=== PATIENT | male | born 1990 | race Caucasian/White ===

== ENCOUNTER 2021-03-02 10:48 | Emergency (ER) | payer OTHER, SELFPAY ==
[2021-03-02 10:56] VITALS: BP 110/77; PULSE 82; RESP 15; TEMP 36.4; O2SAT 99; BMI 25.0
--- NOTE | 2021-03-02 10:59 | PC.NURSE ---
Patient reports that he was moving things in his garage and dropped a scissor annie on his left foot around 0630 this morning. Reports pain as throbbing and reports pain as a 7 on the numeric pain scale.
--- NOTE | 2021-03-02 11:05 | XR_ITS ---
WS: [id number] Left foot, 3 views, 03/02/2021 Clinical Data: trauma Comparison: None. Findings: No fractures or dislocations are seen. No bone destruction or erosion is noted. The joint spaces and soft tissues are normal. XR/XR foot LT min 3V* [id number] Impression: Negative left foot.
[2021-03-02 11:09] VITALS: BP 110/77; PULSE 75; RESP 16; O2SAT 100
[2021-03-02] MEDS: acetaminophen 325 mg Tablet 650 MG PO (11:15)
--- NOTE | 2021-03-02 11:33 | ED_ITS ---
HPI - Extremity Problem General: Chief complaint: Extremity Injury, Lower Stated complaint: Foot Pain Time Seen by Provider: 03/02/21 10:55 Source: patient Mode of arrival: ambulatory Limitations: no limitations History of Present Illness: HPI Narrative: 30 yo male patient presents to ER with left foot pain. Pt states he dropped a annie on it and now it is painful. Pt denies any numbness or tingling. Pt denies any other trauma or injury. MD Complaint: extremity pain Pain Consistency: constant Location: left and lower extremity Associated symptoms: Deny chest pain or fever(s) Review of Systems General: Reports: 10 or more systems reviewed and unremarkable except in HPI and below Const: Denies: fever(s) or chills Card: Denies: chest pain Resp: Denies: dyspnea GI: Denies: abdominal pain Musc: Reports: extremity pain Physical Exam Const: COMMON NORMALS: no acute distress, average body habitus, patient oriented x3, no limitations, healthy appearing, alert and well nourished Extremity: LEFT LOWER EXTREMITY: Yes foot & digits (minimal edema) Left foot and digits: Yes inspection, Yes palpation (tedner to distal dorsal area) and Yes neurovascular exam (NVi distally) Neuro: COMMON NORMALS: patient oriented x3 SENSORIUM/ORIENTATION: Yes alert Course Vital Signs: Vital signs: Vital Signs Temperature 97.5 F L 03/02/21 10:56 Pulse Rate 75 03/02/21 11:09 Respiratory Rate 16 03/02/21 11:09 Blood Pressure 110/77 03/02/21 11:09 Pulse Oximetry 100 03/02/21 11:09 MDM - Extremity (Nontraumatic) MDM Narrative: Medical decision making narrative: Pt is well appearing non toxic and in no acute distress. Pt xray does not reveal any acute fracture or dislocation. Pt is NVI distally. There is no area of obvious trauma or injury noted. I will place patient in adilson wrap. Return precautions advised and home care discussed. Pt requested tylenol for pain. 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
--- NOTE | 2021-03-02 12:06 | PC.NURSE ---
4 inch adilson wrap applied to left foot
== END 2021-03-02 12:09 | disposition home or self-care (01) ==
PROVIDERS: Emergency Provider Registered Nurse
DX: M79.672 Pain in left foot (principal)
CPT/HCPCS: 73630; 99283